=== PATIENT | female | born 1990 | race Caucasian/White ===

== ENCOUNTER → 2016-09-12 | Outpatient (CLI) | payer OTHER ==
--- NOTE | 2016-09-12 16:00 | DIAGNOSTIC IMAGING REPORT ---
HEAD ULTRASOUND HISTORY: ORBITAL LESION RIGHT SIDE COMPARISON: Brain MRI 08/15/2015. FINDINGS: Within the superolateral right orbital rim there is a 6 x 5 mm bony excrescence. This is stable compared to 08/15/2015 brain MRI. This is consistent with a small exostosis. No overlying soft tissue masses or fluid collections. IMPRESSION: Stable 6 x 5 mm exostosis within the right superolateral orbital rim. Electronically signed by: Law Turpin M.D. 09/12/2016 3:58 PM Dictated Date/Time: 09/12/2016 3:56 PM
== END | disposition home or self-care (01) ==
LOC: C.ULTR 15:27
PROVIDERS: ATTEND Family Medicine
DX: H05.89 Other disorders of orbit (principal)

== ENCOUNTER → 2017-08-27 | Outpatient (CLI) | payer OTHER ==
--- NOTE | 2017-08-27 17:43 | DIAGNOSTIC IMAGING REPORT ---
KUB CLINICAL HISTORY: 26 years-old Female presenting with constipation, upper abdominal bloating. TECHNIQUE: Single supine view of the abdomen was obtained. COMPARISON: None. FINDINGS: Moderate stool burden from the cecum to the descending colon. No bowel obstruction though there is a paucity of small bowel gas, nonspecific. No gross pneumoperitoneum. Allowing for bowel gas and stool, no calcifications to suggest nephrolithiasis. An intrauterine device projects over the pelvis. The uterus may be retroverted. Multiple pelvic phleboliths noted. Osseous structures normal. Lung bases clear. IMPRESSION: 1. Moderate stool burden from the cecum to the descending colon consistent with constipation. No bowel obstruction. Electronically signed by: Riky Harris M.D. 08/27/2017 5:42 PM Dictated Date/Time: 08/27/2017 5:40 PM
== END | disposition home or self-care (01) ==
LOC: C.RAD 17:13
PROVIDERS: ATTEND Physician Assistant
DX: R14.0 Abdominal distension (gaseous) (principal); K59.00 Constipation, unspecified

== ENCOUNTER → 2017-09-03 | Outpatient (CLI) | payer OTHER ==
[2017-09-03 09:36] LABS: BASO % 0.3 %; BASO ABS # 0.02 K/uL (0-0.2); EOS % 2.1 %; EOS ABS # 0.14 K/uL (0-0.5); HEMATOCRIT 44.7 % (37-47); IG# 0.03 K/uL (0.00-0.02); LYMPH % 37.1 %; LYMPH ABS # 2.51 K/uL (1.2-3.4); MEAN CELL VOLUME 93.7 fL (80-100); MEAN CORPUSCULAR HEMOGLOBIN 31.4 pg (25-34); MEAN CORPUSCULAR HGB CONC 33.6 g/dl (32-36); MEAN PLATELET VOLUME 10.3 fL (7.4-10.4); MONO % 8.1 %; MONO ABS # 0.55 K/uL (0.11-0.59); NEUT ABS # 3.52 K/uL (1.4-6.5); PLATELET COUNT 212 K/uL (130-400); RED CELL DISTRIBUTION WIDTH CV 12.4 % (11.5-14.5); RED CELL DISTRIBUTION WIDTH SD 42.4 fL (36.4-46.3); WHITE BLOOD COUNT 6.77 K/uL (4.8-10.8)
== END | disposition home or self-care (01) ==
LOC: C.LAB 08:32
PROVIDERS: ATTEND Nurse Practitioner
DX: R53.83 Other fatigue (principal); K59.09 Other constipation

== ENCOUNTER → 2018-01-13 | Outpatient (CLI) | payer OTHER | END | disposition home or self-care (01) | LOC: C.LABBFT 14:07 | PROVIDERS: ATTEND Physician Assistant | DX: Z00.00 Encounter for general adult medical examination without abnormal findings (principal) ==